=== PATIENT | male | born 1955 | race Caucasian/White ===

== ENCOUNTER 2017-03-04 17:54 | Emergency (ER) | payer OTHER ==
[~2017-03-04] VITALS: Ht 180.3 cm; Wt 75.0 kg
[~2017-03-04 17:54] MED LIST: FERR324T4 PO; PRIL40CA PO; STOO100C PO; TAB-TAB PO; Z.0.NO CURRENT MEDS
--- NOTE | 2017-03-04 18:43 | PD ---
HPI Chief Complaint: psychiatric symptoms Time Seen by Provider: 18:42 Travel History International Travel<30 days: No Contact w/Intl Traveler<30days: No History of Present Illness HPI 61-year-old male presents to the ED under Peña act for evaluation of suicidal ideation. According to [facility] paperwork the patient states that to his sister that he was thinking of killing himself. On presentation the patient does endorse making these statements. He denies a specific plan. He states that he is under several stressors that are contributing to these thoughts. He denies previous psychiatric diagnoses or hospitalization. He denies previous suicide attempts. He denies somatic complaints. PFSH Past Medical History Cardiovascular Problems: No Cerebrovascular Accident: No Diminished Hearing: No Genitourinary: No Headaches: No Musculoskeletal: No Neurologic: No Reproductive: No Respiratory: No Migraines: No Seizures: No Past Surgical History Abdominal Surgery: No Cardiac Surgery: No Ear Surgery: No Endocrine Surgery: No Eye Surgery: No Genitourinary Surgery: No Gynecologic Surgery: No Oral Surgery: No Thoracic Surgery: No Social History Alcohol Use: No Tobacco Use: Yes Substance Use: No Allergies-Medications (Allergen,Severity, Reaction): Coded Allergies: Penicillin (Verified Allergy, Mild, 04/17/08) Reported Meds & Prescriptions Reported Meds & Active Scripts Active Reported Prilosec (Omeprazole) 40 Mg Cap 40 Mg PO DAILY Colace (Docusate Sodium) 100 Mg Cap 100 Mg PO BID Ferrous Sulfate 325 Mg Tab 325 Mg PO BID Multivitamin (Multivitamins) 1 Tab Tab 1 Tab PO DAILY No Current Meds (Miscellaneous Medication) Misc Review of Systems Except as stated in HPI: all other systems reviewed are Neg Physical Exam Narrative GENERAL: Well-nourished, well-developed patient. PSYCHIATRIC: No delusional thought processes. No hallucinations. Pleasant. Cooperative. Future oriented. SKIN: Focused skin assessment warm/dry. HEAD: Normocephalic. EYES: No scleral icterus. No injection or drainage. NECK: Supple, trachea midline. No JVD or lymphadenopathy. CARDIOVASCULAR: Regular rate and rhythm without murmurs, gallops, or rubs. RESPIRATORY: Breath sounds clear and equal bilaterally. No accessory muscle use. GASTROINTESTINAL: Abdomen soft, non-tender, nondistended. Active bowel sounds. MUSCULOSKELETAL: No cyanosis, or edema. BACK: Nontender without obvious deformity. No CVA tenderness. Data Data Last Documented VS Vital Signs Date Time Temp Pulse Resp B/P Pulse Ox O2 Delivery O2 Flow Rate FiO2 03/04/17 20:14 16 03/04/17 19:47 98.6 108 194/118 96 Room Air Orders Complete Blood Count With Diff (03/04/17 18:41) Comprehensive Metabolic Panel (03/04/17 18:41) Psych Screen (03/04/17 18:41) Drug Screen, Random Urine (03/04/17 18:41) Alcohol (Ethanol) (03/04/17 18:41) Labs Laboratory Tests Test 03/04/17 18:50 White Blood Count 7.6 TH/MM3 Red Blood Count 4.83 MIL/MM3 Hemoglobin 14.5 GM/DL Hematocrit 42.8 % Mean Corpuscular Volume 88.6 FL Mean Corpuscular Hemoglobin 29.9 PG Mean Corpuscular Hemoglobin 33.8 % Concent Red Cell Distribution Width 13.9 % Platelet Count 211 TH/MM3 Mean Platelet Volume 8.9 FL Neutrophils (%) (Auto) 78.5 % Lymphocytes (%) (Auto) 11.0 % Monocytes (%) (Auto) 6.7 % Eosinophils (%) (Auto) 3.0 % Basophils (%) (Auto) 0.8 % Neutrophils # (Auto) 6.0 TH/MM3 Lymphocytes # (Auto) 0.8 TH/MM3 Monocytes # (Auto) 0.5 TH/MM3 Eosinophils # (Auto) 0.2 TH/MM3 Basophils # (Auto) 0.1 TH/MM3 CBC Comment DIFF FINAL Differential Comment Sodium Level 139 MEQ/L Potassium Level 4.2 MEQ/L Chloride Level 106 MEQ/L Carbon Dioxide Level 25.1 MEQ/L Anion Gap 8 MEQ/L Blood Urea Nitrogen 22 MG/DL Creatinine 0.88 MG/DL Estimat Glomerular Filtration 88 ML/MIN Rate Random Glucose 104 MG/DL Calcium Level 9.0 MG/DL Total Bilirubin 0.5 MG/DL Aspartate Amino Transf 17 U/L (AST/SGOT) Alanine Aminotransferase 22 U/L (ALT/SGPT) Alkaline Phosphatase 74 U/L Total Protein 7.3 GM/DL Albumin 3.8 GM/DL Ethyl Alcohol Level LESS THAN 3 MG/DL MDM Medical Decision Making Medical Screen Exam Complete: Yes Emergency Medical Condition: Yes Differential Diagnosis Adjustment disorder versus anxiety versus bipolar versus depression versus dementia versus electrolyte disorder versus malingering versus mood disorder versus ODD versus psychosis versus PTSD versus schizophrenia versus schizoaffective disorder versus substance-induced mood disorder versus other Narrative Course 61-year-old male presents to the ED under Peña act for evaluation of suicidal ideation. According to Peña Act paperwork the patient stated to his sister that he was thinking of killing himself. On presentation the patient does endorse making these statements. He denies a specific plan. He states that he is under several stressors that are contributing to these thoughts. He denies previous psychiatric diagnoses or hospitalization. He denies previous suicide attempts. He denies somatic complaints. Vitals reviewed. Physical exam unremarkable. Patient is future oriented. Lab work unremarkable. He's medically cleared for psychiatric evaluation. Diagnosis Primary Impression: Passive suicidal ideations Additional Impression: Medical clearance for psychiatric admission Padmini Magaña Mar 04, 2017 18:43
[2017-03-04 19:36] LABS: BASOPHIL # 0.1 TH/MM3 (0-0.2); BASOPHIL % 0.8 % (0.0-2.0); EOSINOPHIL # 0.2 TH/MM3 (0-0.4); HEMATOCRIT 42.8 % (39.0-51.0); HEMO FLAGS DIFF FINAL; LYMPHOCYTE # 0.8 TH/MM3 (1.0-4.8); MEAN CELL VOLUME 88.6 FL (80.0-100.0); MEAN CORPUSCULAR HEMOGLOBIN 29.9 PG (27.0-34.0); MEAN CORPUSCULAR HGB CONC 33.8 % (32.0-36.0); MONO % 6.7 % (0.0-8.0); NEUT % 78.5 % (16.0-70.0); PLATELET COUNT 211 TH/MM3 (150-450); RED BLOOD COUNT 4.83 MIL/MM3 (4.50-5.90); RED CELL DISTRIBUTION WIDTH 13.9 % (11.6-17.2); WHITE BLOOD COUNT 7.6 TH/MM3 (4.0-11.0)
[2017-03-04 19:47] VITALS: BP 194/118; PULSE 108; RESP 16; TEMP 98.6; O2SAT 96
[2017-03-04 19:55] LABS: ANION GAP 8 MEQ/L (5-15); AST (GOT) 17 U/L (15-37); BICARBONATE 25.1 MEQ/L (21.0-32.0); BLOOD UREA NITROGEN 22 MG/DL (7-18); CHLORIDE 106 MEQ/L (98-107); GLOMERULAR FILTRATION RATE 88 ML/MIN (>89); POTASSIUM 4.2 MEQ/L (3.5-5.1); SODIUM (NA) 139 MEQ/L (136-145)
[2017-03-04 19:56] LABS: ALT (GPT) 22 U/L (12-78)
[2017-03-04 19:58] LABS: ALKALINE PHOSPHATASE 74 U/L (45-117); TOTAL BILIRUBIN ADULT 0.5 MG/DL (0.2-1.0)
[2017-03-05 00:30] VITALS: BP 139/94; PULSE 86; RESP 18; O2SAT 96
[2017-03-05 06:16] VITALS: BP 140/90; PULSE 77; RESP 18; O2SAT 100
[2017-03-05 07:31] VITALS: BP 151/101; PULSE 85; RESP 21; O2SAT 96
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
== END 2017-03-05 11:25 | disposition home or self-care (01) ==
LOC: NEDAMB 17:54 → NEPD 03-05 11:25
DX: R45.851 Suicidal ideations (principal); Z79.899 Other long term (current) drug therapy
CPT/HCPCS: 80053; 80307; 85025; 99283